=== PATIENT | male | born 1975 | race Caucasian/White ===

== ENCOUNTER 2016-11-02 13:16 | Emergency (ER) | payer MEDICARE, OTHER ==
[2016-11-02] MEDS ORDERED: KETOROLAC TROMETHAMINE 60 MG/2 ML VIAL IM ONE (13:42)
[2016-11-02] MEDS ORDERED: ORPHENADRINE CITRATE 60 MG/2ML ONE (14:34)
[2016-11-02] MEDS ORDERED: ORPHENADRINE CITRATE 60 MG/2ML IM ONE (14:36)
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
[2016-11-02 15:40] VITALS: BP 112/69
--- NOTE | 2016-11-02 16:23 | Diagnostic Imaging Report ---
LAYTON CARRILLO~ [facility] [id number] [facility].[address] [address] ~ ~ ~ ~ Report Submission Date: November 02, 2016 2:18:44 PM CDT Patient ~ Study Name: TRINITY TAVAREZ ~ Date: November 02, 2016 1:55:50 PM CDT ~ Modality Type: CR Gender: M ~ Description: SPINE : 71 ~ Institution: [facility] Physician: LAYTON CARRILLO ~ ~ ~ ~ AP and lateral sacrum coccyx Clinical history of fall injury Technique AP and lateral Findings: There is lumbar spondylosis. Internal fixation screws traverse the left ilium and of the sacrum. Internal fixation plate and screws bridege ~the pubic symphysis. No acute coccyx abnormality identified Impression: Postoperative changes in the pelvis Lumbar spondylosis. No acute bony pathology ~ Electronically signed on November 02, 2016 2:18:44 PM CDT by: Yonathan SARAVIA
== END 2016-11-02 15:39 | disposition home or self-care (01) ==
LOC: ED 13:16
DX: M53.3 Sacrococcygeal disorders, not elsewhere classified (principal)
CPT/HCPCS: 72220; J1885; J2360; 96372; 99283